=== PATIENT | male | born 1985 | race Caucasian/White ===

== ENCOUNTER 2025-05-07 19:16 | Emergency (ER) | payer BC, SELFPAY ==
[2025-05-07 19:25] VITALS: BP 120/80
[2025-05-07 19:44] LABS: Hematocrit 42.5 % (39.0-52.0); Hemoglobin 15.2 g/dL (13.0-18.0); Mean Corp Hgb Conc. 35.8 g/dL (33.0-37.0); Mean Corpuscular Volume 83.3 fL (80.0-94.0); Nucleated Red Blood Cells % 0 % (-); Platelet Count 235 10^3/uL (130-400); Red Cell Dist. Width 13.1 % (11.5-14.5)
[2025-05-07 19:57] LABS: ALT (SGPT) 34 U/L (0-50); AST (SGOT) 91 U/L (17-59); Albumin 5.6 g/dl (3.5-5.0); Alkaline Phosphatase 76 U/L (38-126); Blood Urea Nitrogen 20 mg/dl (9-20); Calcium 11.3 mg/dl (8.4-10.2); Carbon Dioxide 19 mmol/L (22-30); Chloride 103 mmol/L (98-107); Glucose 127 mg/dl (70-99); Potassium 4.4 mmol/L (3.5-5.1); Sodium 138 mmol/L (135-145); Total Protein 8.2 g/dl (6.3-8.2); eGFR > 60.00
--- NOTE | 2025-05-07 20:21 | ED.GENMED ---
History of Present Illness
<Nicki Carvajal MD, Resident - Last Filed: 05/07/25 23:04>
General
Chief Complaint: Dehydration Symptoms
Source: patient
Time Seen by Provider: 05/07/25 20:19
History of Present Illness
History of Present Illness:
Jerman Balbuena is a 39-year-old male with IBS, Raynaud's, anxiety who presents with 3 episodes of emesis, dehydration, chills/shakes, and weakness after running a 31 mile race earlier today. He reports that 3 started 7 AM this morning and his run time
was 8 hours 22 minutes. He reports that around mile 27 he started feeling nauseous and vomited, again at while 29.5/30, and again after finishing the race. He reports that he tried to drink water, however he kept vomiting and was unable to keep
anything down. He also reports feeling very hot during this, to the point where cold towels and ice packs were not helping him. He then reports feeling very cold and having chills/being shaky. Once he arrived home, he remained in his running
close and under warm blankets. He was still unable to keep any water or food down. At this point his neighbor, who is a doctor, came over and Jerman his temperature was noted to be 100.6. His neighbor recommended that he was coming to the ED for
evaluation of rhabdo. He endorses fatigue, shakes, nausea, weakness, and feeling dehydrated. He denies any recent infections, dizziness, or pain.
Phy Exam
<Nicki Carvajal MD, Resident - Last Filed: 05/07/25 23:04>
General Physical Exam
General Presentation: mild distress
General Skin: dry and flushed
General Habitus: normal
ENT Exam
ENT Exam: EOMI
Cardiovascular Exam
Cardiovascular Exam: regular rate/rhythm and no edema
Pulmonary Exam
Pulmonary Exam: lungs clear and no respiratory distress
Gastrointestinal Exam
Gastrointestinal Exam: normal bowel sounds, non tender and soft
Musculoskeletal Exam
Musculoskeletal Exam: full ROM and no edema
Skin Exam
Skin Exam: warm/dry
Course
<ekaterina Carvajal MD, Resident - Last Filed: 05/07/25 23:04>
Orders/Labs/Results
Orders:
Orders
05/07/25 19:37
CPK [Creatine Phosphokinase] Urgent
Complete Blood Count/With Diff Urgent
Comprehensive Metabolic Panel Urgent
05/07/25 20:41
Ondansetron Injectable [Zofran] 4 mg IV NOW STA
05/07/25 20:42
0.9% Sodium Chloride 1000 ml [Nss] 2,000 ml IV BOLUS
05/07/25 20:51
Urinalysis Reflex To Culture Urgent
Date Specimen was Collected: 05/07/25
Time Specimen was Collected: 20:37
Urine Microscopic Reflex Cult Urgent
Abnormal Lab Results
05/07/25 05/07/25
19:37 20:51
WBC 15.4 H 10^3/uL
(4.8-10.8)
Abs Immat Gran (auto) 0.1 H 10^3/uL
(0-0.05)
Absolute Neuts (auto) 12.7 H 10^3/uL
(1.4-6.5)
Absolute Monos (auto) 0.9 H 10^3/uL
(0.1-0.6)
Neutrophils % 82.2 H %
(42.2-75.2)
Lymphocytes % 11.5 L %
(20.5-51.1)
Carbon Dioxide 19 L mmol/L
(22-30)
Glucose 127 H mg/dl
(70-99)
Calcium 11.3 H mg/dl
(8.4-10.2)
Total Bilirubin 2.2 H mg/dl
(0.2-1.3)
AST 91 H U/L
(17-59)
Creatine Kinase 3624 H U/L
(55-170)
Albumin 5.6 H g/dl
(3.5-5.0)
Urine Ketones 3+ A
(Negative)
Urine Albumin (Reflex) 1+ A
(Neg - Trace)
05/07/25 19:37
05/07/25 19:37
Vital Signs
Initial and Last Documented VS:
Initial Vital Signs
Temp Pulse Resp BP Pulse Ox
98.4 F 82 20 120/80 100
05/07/25 19:25 05/07/25 19:25 05/07/25 19:25 05/07/25 19:25 05/07/25 19:25
Last Documented Vital Signs
Temp Pulse Resp BP Pulse Ox
99.0 F 67 16 109/63 100
05/07/25 21:00 05/07/25 21:00 05/07/25 21:00 05/07/25 21:00 05/07/25 21:00
<Mat Chinchilla, DO - Last Filed: 05/07/25 21:21>
Orders/Labs/Results
Orders:
Orders
05/07/25 19:37
CPK [Creatine Phosphokinase] Urgent
Complete Blood Count/With Diff Urgent
Comprehensive Metabolic Panel Urgent
05/07/25 20:41
Ondansetron Injectable [Zofran] 4 mg IV NOW STA
05/07/25 20:42
0.9% Sodium Chloride 1000 ml [Nss] 2,000 ml IV BOLUS
05/07/25 20:51
Urinalysis Reflex To Culture Urgent
Date Specimen was Collected: 05/07/25
Time Specimen was Collected: 20:37
Urine Microscopic Reflex Cult Urgent
Abnormal Lab Results
05/07/25 05/07/25
19:37 20:51
WBC 15.4 H 10^3/uL
(4.8-10.8)
Abs Immat Gran (auto) 0.1 H 10^3/uL
(0-0.05)
Absolute Neuts (auto) 12.7 H 10^3/uL
(1.4-6.5)
Absolute Monos (auto) 0.9 H 10^3/uL
(0.1-0.6)
Neutrophils % 82.2 H %
(42.2-75.2)
Lymphocytes % 11.5 L %
(20.5-51.1)
Carbon Dioxide 19 L mmol/L
(22-30)
Glucose 127 H mg/dl
(70-99)
Calcium 11.3 H mg/dl
(8.4-10.2)
Total Bilirubin 2.2 H mg/dl
(0.2-1.3)
AST 91 H U/L
(17-59)
Creatine Kinase 3624 H U/L
(55-170)
Albumin 5.6 H g/dl
(3.5-5.0)
Urine Ketones 3+ A
(Negative)
Urine Albumin (Reflex) 1+ A
(Neg - Trace)
05/07/25 19:37
05/07/25 19:37
Vital Signs
Initial and Last Documented VS:
Initial Vital Signs
Temp Pulse Resp BP Pulse Ox
98.4 F 82 20 120/80 100
05/07/25 19:25 05/07/25 19:25 05/07/25 19:25 05/07/25 19:25 05/07/25 19:25
Last Documented Vital Signs
Temp Pulse Resp BP Pulse Ox
99.0 F 67 16 109/63 100
05/07/25 21:00 05/07/25 21:00 05/07/25 21:00 05/07/25 21:00 05/07/25 21:00
<Nicki Carvajal MD, Resident - Last Filed: 05/07/25 23:04>
MDM/Problems Addressed
Differential Diagnosis Includes:
Rhabdomyolysis
Heat Exhaustion
DVT
MDM/Problems Addressed:
Jerman Balbuena is a 39-year-old male with IBS, Raynaud's, anxiety who presents with 3 episodes of emesis, dehydration, chills/shakes, and weakness after running a 31 mile race earlier today.
#Dehydration
#Weakness
#Emesis
#Nausea
- CBC with WBC 15.4, CMP with calcium 11.3
- Creatinine kinase 3624
- UA unremarkable for RBCs and bacteria
- 2L IV NSS and IV Zofran 4 mg x 1
<Nicki Carvajal MD, Resident - Last Filed: 05/07/25 23:04>
*Pulse Oximetry
SaO2: 100
Oxygen Mode of Delivery: Room air
Patient hypoxic: no
*Critical Care Note
Total Time (30-74mins, 75-104mins- exclusive of procedures): Not Applicable
<Nicki Carvajal MD, Resident - Last Filed: 05/07/25 23:04>
Update Note
Update Note:
s/p 1L Nss - he reports feeling a bit better, although not 100% himself, BP 96/63, HDS
s/p 2L Nss - he feels much better, is able to ambulate, safe to dc home
ED Attending Note
<Nicki Carvajal MD, Resident - Last Filed: 05/07/25 23:04>
-
Portions of this chart may have been created with voice recognition software.� Occasional wrong word or��sound alike� substitutions may have occurred due to the inherent limitations of voice recognition software.
<Mat Chinchilla, DO - Last Filed: 05/07/25 21:21>
ED Attending Note
Patient seen and examined by attending physician: Yes
I performed a history and physical exam of patient and discussed management with resident, I reviewed resident's note and agree with documented findings and plan of care.: Yes
ED Attending Note:
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
On exam he is nontoxic, leg compartments are soft reviewed typical course and this I do think he can likely go home after couple liters of fluid we will have him get some follow-up blood work in 48 to 72 hours
Discharge Plan
Departure
Patient Disposition: Home (Routine Discharge)
Date of Disposition: 05/07/25
Time of Disposition: 23:03
Patient with high blood pressure during this ER visit?: No
Condition: Good
Discharge Problem:
Dehydration after exertion
Referrals:
Priyank Peña IV, DO [Family Provider, Family Practice]
Activity Restrictions/Additional Instructions:
Follow-up CMP and CPK levels in 3-4 days as per handwritten script.
Interventions
Interventions:
*Risk Screen - Suicide Last Done: 05/07/25 20:52
*General Assessment Last Done: 05/07/25 20:52
*Neglect/Abuse Screening Last Done: 05/07/25 20:52
*ED- Fall Risk Assessment Last Done: 05/07/25 20:52
*ED COVID-19 Vaccine History Last Done: 05/07/25 20:52
ED- Cardiac Assessment Last Done: 05/07/25 20:52
ED- Neurological Assessment Last Done: 05/07/25 20:52
ED- Pulmonary Assessment Last Done: 05/07/25 20:52
Discharge Date and Time
Print Language: PALAUAN
[2025-05-07 20:52] VITALS: BMI 24.7
[2025-05-07 21:00] VITALS: BP 109/63
[2025-05-07] MEDS: NSS 2000 IV (21:00)
[2025-05-07] MEDS: ZOFRAN 4 MG IV (21:00)
[2025-05-07 21:07] LABS: Urine Character Clear (Clear)
[2025-05-07 22:03] LABS: Urine Red Blood Cell 0-2 /HPF (0-2); Urine Squamous Cell 0-2 /LPF (Few); Urine White Cell 0-2 /HPF (0-5)
[2025-05-07 23:03] VITALS: BP 112/64
--- NOTE | 2025-05-07 23:03 | EDRN ---
Patient feeling better, he was able to ambulate into the restroom without difficulty and feels ready to go home.
== END 2025-05-07 23:11 | disposition home or self-care (01) ==
LOC: EMR 19:16
PROVIDERS: EMERGENCY PHYSICIAN Emergency Medicine; FAMILY PHYSICIAN Family Medicine
DX: E86.0 Dehydration (principal); F41.9 Anxiety disorder, unspecified; K58.9 Irritable bowel syndrome, unspecified; I73.00 Raynaud's syndrome without gangrene
CPT/HCPCS: 99284; 96374; 96361; 80053; 81003; 81015; 82550; 85025